=== PATIENT | female | born 1945 | race Caucasian/White ===

== ENCOUNTER 2017-04-09 10:40 | Emergency (ER) | payer BC, MEDICARE ==
--- NOTE | 2017-04-09 11:43 | CT REPORT ---
History: Fall, injury. Comparison: None. Technique: Axial CT from the skull base through the vertex without contrast. This examination was performed usin g automated exposure control, adjustment of mA or kV according to patient size, and/or use of iterati ve reconstruction technique. Findings: There is a 7 x 3 mm calcification in the deep white matter of the left frontal lobe posteriorly abutt ing the ventricular margin. There may be an additional more faint linear calcification in this region slightly more anteriorly. There is no evidence of acute large vascular territory infarct, acute intr acranial hemorrhage, intra or extra-axial mass or hemorrhage, nor hydrocephalus. There is no evidence of acute bony injury. The paranasal sinuses are clear. The the soft tissues, orbits, and globes are unremarkable. Impression: 1. Incidental benign-appearing deep white matter calcification of the left frontal lobe. 2. No acute findings. Final Electronic Signature: This report was electronically signed by Riky Guo MD on 04/09/2017 11:41 AM. wberger /
--- NOTE | 2017-04-09 11:45 | CT REPORT ---
HISTORY: Fall, with facial injury. Evaluate for fracture. COMPARISON: None. TECHNIQUE: This examination was performed using automated exposure control, adjustment of mA or kV according to patient size, and/or use of iterative reconstruction technique. Axial noncontrast images of the sinus es obtained with multiplanar reformat images. FINDINGS: There is no fracture. Intraorbital soft tissues appear unremarkable. 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 Remaining paranasal sinuses are normal. Visualized intracranial structures are u nremarkable. Right maxillary soft tissue swelling is present. . IMPRESSION: 1. Right maxillary soft tissue swelling, but no facial bone fracture. 2. 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 Final Electronic Signature: This report was electronically signed by Marko Ramirez MD on 04/09/2017 11:43 AM. gloria /
--- NOTE | 2017-04-09 13:32 | ER NURSING DOCUMENTATION ---
Nurse's Notes [facility] Name:Yomaira Maldonado Age:71 yrs Sex:Female :1945 Arrival Date:04/09/2017 Time:10:40 Bed6 Private MD: Diagnosis:Head Injury;Upper Arm Contusion Presentation: 04/09 10:44 Acuity: MICHELLE 3 va1 10:52 Presenting complaint: Patient states: fell from standing. c/o pain right humerus and sc1 struck right cheek area on ground. Denies LOC. Care prior to arrival: None. Mechanism of Injury: Fall. 10:52 Method Of Arrival: Private Vehicle sc1 Triage Assessment: 10:55 General: Appears in no apparent distress, well developed, well nourished, well groomed, sc1 Behavior is cooperative, pleasant. Pain: Complains of pain in right upper arm and right cheek. Historical: - Allergies: No known drug Allergies; - Home Meds: 1. lovastatin 20 mg oral tab 1 tab once daily 2. ranitidine HCl 150 mg oral tab 1 tab once daily at bedtime 3. Jantoven 2.5 mg oral tab 1 tab once daily 4. losartan 25 mg oral tab 1/2 tab once daily 5. paroxetine HCl 10 mg oral tab 1 tab once daily 6. metoprolol tartrate 25 mg oral tab 1 tab once daily - PMHx: Hypertension; - Ebola Screening: : Patient negative for fever greater than or equal to 101.5 degrees Fahrenheit, and additional compatible Ebola Virus Disease symptoms. Patient denies exposure to infectious person. Patient denies travel to an Ebola-affected area in the 21 days before illness onset. No symptoms or risks identified at this time. . - Immunization history: Pneumococcal vaccine is up to date, Flu Vaccine < 1 year. - Social history: Smoking status: Patient states was never smoker of tobacco. Patient/guardian denies using alcohol, street drugs, IV drugs, marijuana. Screenin:58 Abuse screen: Denies threats or abuse. Nutritional screening: No deficits noted. sc1 Tuberculosis screening: No symptoms or risk factors identified. Primary Survey: 10:59 Airway: patent. Breathing/Chest: Respiratory pattern: regular. Circulation: Cardiac sc1 rhythm: sinus rhythm. Secondary Survey: 10:59 HEENT: No deficits noted. Gastrointestinal: No deficits noted. : No deficits noted. sc1 Musculoskeletal: No deficits noted. Injury Description: Abrasion. Vital Signs: 10:56 BP 190 / 87; Pulse 71; Resp 18; Temp 98.7; Pulse Ox 89% on R/A; va1 ED Course: 10:42 Patient arrived in ED. ama 10:43 Tootie Oseugera, RN is Primary Nurse. [facility] [place] 10:44 [place]riage completed. [facility] [place] 10:51 Mo Dia MD is Attending Physician. va 10:57 Notified ED Physician of patient's arrival and chief complaint. Dr. Dia notified. Arm va1 band placed on Bed in low position Call Light in Reach Gowned HOB Elevated Side rails up x2. X-ray ordered. Administered Medications: No medications were administered Outcome: 12:12 Discharge ordered by . va 12:38 Patient left the ED. [facility] [place] 07 09:00 Discharge F/U Call: Unable to reach: no answer st Signatures: Gail Potter RN RN st Campbell, Sandy, RN RN [facility] [place] Mo Dia MD MD sc Abbott, Klaus Carter, Morris Reg ama
--- NOTE | 2017-04-09 13:32 | ER PHYSICIAN DOCUMENTATION ---
Physician Documentation [facility] Name:Yomaira Maldonado Age:71 yrs Sex:Female :1945 Arrival Date:04/09/2017 Time:10:40 Bed6 Private MD: Mo Ruelas Disposition: 04/09/17 12:12 Discharged to Home/Self Care. Impression: Head Injury, Upper Arm Contusion. - Condition is Fair. - Discharge Instructions: CONTUSION, Upper Extremity, HEAD INJURY, No Wake-Up (Adult). - Medical Reconciliation form form. - Follow up: Private Physician; When: 1 week; Reason: Recheck today's complaints. - Problem is new. - Symptoms have improved. HPI: 04/09 12:08 This 71 yrs old Female presents to ER via Private Vehicle with complaints of sc Fall Injury. 12:08 Details of fall: The patient fell from an upright position, while walking. Onset: The sc symptom(s)/episode began/occurred just prior to arrival. Associated injuries: The patient sustained injury to the head, contusion, right arm. Associated signs and symptoms: The patient has no apparent associated signs or symptoms, Loss of consciousness: the patient experienced no loss of consciousness. Severity of symptoms: At their worst the symptoms were moderate. The patient has experienced similar episodes in the past, a few times, multiple hospitalizations for syncopal episodes and complete neuro good but this time slipped on uneven ground. Historical: - Allergies: No known drug Allergies; - Home Meds: 1. lovastatin 20 mg oral tab 1 tab once daily 2. ranitidine HCl 150 mg oral tab 1 tab once daily at bedtime 3. Jantoven 2.5 mg oral tab 1 tab once daily 4. losartan 25 mg oral tab 1/2 tab once daily 5. paroxetine HCl 10 mg oral tab 1 tab once daily 6. metoprolol tartrate 25 mg oral tab 1 tab once daily - PMHx: Hypertension; - Ebola Screening: : Patient negative for fever greater than or equal to 101.5 degrees Fahrenheit, and additional compatible Ebola Virus Disease symptoms. Patient denies exposure to infectious person. Patient denies travel to an Ebola-affected area in the 21 days before illness onset. No symptoms or risks identified at this time. . - Immunization history: Pneumococcal vaccine is up to date, Flu Vaccine < 1 year. - Social history: Smoking status: Patient states was never smoker of tobacco. Patient/guardian denies using alcohol, street drugs, IV drugs, marijuana. ROS: 12:09 Constitutional: Negative for fever, chills, and weight loss. sc Eyes: Negative for injury, pain, redness, and discharge. ENT: Negative for injury, pain, and discharge. Neck: Negative for injury, pain, and swelling. Cardiovascular: Negative for chest pain, palpitations, and edema. Respiratory: Negative for shortness of breath, cough, wheezing, and pleuritic chest pain. Abdomen/GI: Negative for abdominal pain, nausea, vomiting, diarrhea, and constipation. Back: Negative for injury and pain. 12:09 Neuro: Negative for headache, weakness, numbness, tingling, and seizure. sc 12:09 MS/extremity: Positive for injury or acute deformity, pain. Exam: Constitutional: This is a well developed, well nourished patient who is awake, alert, and in no acute distress. Eyes: Pupils equal round and reactive to light, extra-ocular motions intact. Lids and lashes normal. Conjunctiva and sclera are non-icteric and not injected. Cornea within normal limits. Periorbital areas with no swelling, redness, or edema. Neck: Trachea midline, no thyromegaly or masses palpated, and no cervical lymphadenopathy. Supple, full range of motion without nuchal rigidity, or vertebral point tenderness. No meningismus. Chest/axilla: Normal chest wall appearance and motion. Nontender with no deformity. No lesions are appreciated. Cardiovascular: Regular rate and rhythm with a normal S1 and S2. No gallops, murmurs, or rubs. Normal PMI, no JVD. No pulse deficits. Respiratory: Lungs have equal breath sounds bilaterally, clear to auscultation and percussion. No rales, rhonchi or wheezes noted. No increased work of breathing, no retractions or nasal flaring. Back: No spinal tenderness. No costovertebral tenderness. Full range of motion. 12:10 Skin: Warm, dry with normal turgor. Normal color with no rashes, no lesions, and no sc evidence of cellulitis. 12:10 Head/face: Noted is contusion, that is superficial, of the right cheek, Basilar skull fracture findings: the patient does not have obvious signs of a basilar skull fracture. 12:10 Musculoskeletal/extremity: Extremities: grossly normal except: pain, ROM: no acute changes, Circulation is intact in all extremities. Sensation intact. 12:10 Neuro: Orientation: is normal. Vital Signs: 10:56 BP 190 / 87; Pulse 71; Resp 18; Temp 98.7; Pulse Ox 89% on R/A; sc1 MDM: 10:51 Patient medically screened. tn 12:11 Differential diagnosis: closed head injury, contusion, fracture, multiple trauma. Data sc reviewed: vital signs, nurses notes, radiologic studies, CT scan, plain films. Data reviewed: and as a result, I will discharge patient. Counseling: I had a detailed discussion with the patient and/or guardian regarding: the historical points, exam findings, and any diagnostic results supporting the discharge/admit diagnosis, radiology results, the need for outpatient follow up, to return to the emergency department if symptoms worsen or persist or if there are any questions or concerns that arise at home. 04/09 11:46 Order name: CAT SCAN; HEAD W/O CON [id number]; Complete Time: 12:07 EDTN 04/09 12:07 Interpretation: Normal. tn 04/09 11:49 Order name: CATSCAN;MAXILLOFAC W/O [id number]; Complete Time: 12:07 EDTN 04/09 12:07 Interpretation: Normal. tn 04/09 10:59 Order name: Ice Packs; Complete Time: 11:03 tn Dispensed Medications: No medications were administered Signatures: Tootie Oseguera RN RN tn1 Mo Dia MD MD tn
--- NOTE | 2017-04-21 08:35 | RADIOLOGY REPORT ---
Four limited portable views of the right humerus demonstrate no displaced fracture. Limited views of the joints are unremarkable. IMPRESSION: Limited examination demonstrates no displaced injury. If clinically indicated, further evaluation and/or follow-up may be of benefit. JOSÉD
== END 2017-04-09 12:39 | disposition home or self-care (01) ==
LOC: ER 10:40
DX: S00.83XA Contusion of other part of head, initial encounter (principal); S40.021A Contusion of right upper arm, initial encounter; W01.0XXA Fall on same level from slipping, tripping and stumbling without subsequent striking against object, initial encounter; Y92.89 Other specified places as the place of occurrence of the external cause; Y93.01 Activity, walking, marching and hiking; I10 Essential (primary) hypertension; Z79.899 Other long term (current) drug therapy
CPT/HCPCS: 70450; 70486; 99281; 99282; 99283